=== PATIENT | male | born 1940 | race Caucasian/White ===

== ENCOUNTER 2021-03-25 09:28 | Outpatient (CLI) | payer MEDICARE, BC ==
[2021-03-25 10:43] LABS: Hemoglobin 12.7 g/dL (13.5-17.5); Mean Corpuscular HGB CONC 33.2 g/dL (32.0-36.0); Mean Corpuscular Hemoglobin 33.2 pg (27.0-33.0); Mean Corpuscular Volume 99.7 fl (81.2-95.1); Mean Platelet Volume 9.5 fl (7.4-10.4); Platelet Count 114 10x3/uL (150-450); RBC Distribution Width 13.5 % (11.5-14.5); Red Blood Cell (RBC) Count 3.83 10x6/uL (4.32-5.72); White Blood Cell (WBC) Count 4.6 10x3/uL (3.5-10.5)
[2021-03-25 11:08] LABS: Anion Gap 11 mmol/L (10-20); BUN (Urea Nitrogen) 20 mg/dL (8.4-25.7); Calc. Creatinine Clearance 0 mL/min (70-130); Calcium 9.5 mg/dL (7.8-10.44); Carbon Dioxide 26 mmol/L (23-31); Chloride 107 mmol/L (98-107); Glucose 236 mg/dL (83-110); Sodium 140 mmol/L (136-145)
[2021-03-25 19:39] LABS: SARS-CoV-2 PCR by NAA Not Detected (NotDetected)
== END 2021-03-25 09:29 | disposition home or self-care (01) ==
LOC: LABBT 09:28
PROVIDERS: ATTEND Otolaryngology Plastic Surgery within the Head & Neck
DX: Z01.818 Encounter for other preprocedural examination (principal); C44.310 Basal cell carcinoma of skin of unspecified parts of face; K13.0 Diseases of lips; D09.9 Carcinoma in situ, unspecified; Z20.822 Contact with and (suspected) exposure to COVID-19
CPT/HCPCS: 80048; 85027; U0003; U0005

== ENCOUNTER 2021-03-30 06:32 | Day surgery (SDC) | payer MEDICARE, BC ==
[2021-03-29 12:28] VITALS: BMI 24.0
[2021-03-30] MEDS ORDERED: Fentanyl 100 MCG/2 ML VIAL ONE (07:58)
[2021-03-30] MEDS ORDERED: Bacitracin Zinc Ointment 30 gm TUBE ONE (08:01)
[2021-03-30] MEDS ORDERED: Lidocaine 1% w/Epinephrine 1:100K 30 ML VIAL ONE (08:01)
[2021-03-30] MEDS ORDERED: PHENYLEPHRINE-NS 100 MCG/ML 10 ML SYRINGE ONE (08:23)
[2021-03-30] MEDS ORDERED: PROPOFOL 200 MG/20 ML VIAL ONE (08:23)
[2021-03-30] MEDS ORDERED: ePHEDrine 50 MG/ML VIAL ONE (08:23)
[2021-03-30] MEDS ORDERED: Lidocaine 1% PF 5 ML VIAL ONE (08:23)
[2021-03-30] MEDS ORDERED: Dexamethasone 20 MG/5 ML VIAL ONE (08:23)
[2021-03-30] MEDS ORDERED: Ondansetron PF 4 MG/2 ML Vial ONE (08:23)
[2021-03-30] MEDS ORDERED: Clindamycin/D5W 900 mg/50 ml Premix Bag ONE (08:36)
== END 2021-03-30 10:40 | disposition home or self-care (01) ==
LOC: SDC 06:32
PROVIDERS: ATTEND Otolaryngology Plastic Surgery within the Head & Neck
PROC: 0CB0XZX Excision of Upper Lip, External Approach, Diagnostic (ICD-10-PCS; principal; 2021-03-30)
DX: C00.0 Malignant neoplasm of external upper lip (principal); I10 Essential (primary) hypertension; E78.5 Hyperlipidemia, unspecified; I25.10 Atherosclerotic heart disease of native coronary artery without angina pectoris; N40.0 Benign prostatic hyperplasia without lower urinary tract symptoms; K21.9 Gastro-esophageal reflux disease without esophagitis; Z79.82 Long term (current) use of aspirin; Z79.899 Other long term (current) drug therapy; Z95.5 Presence of coronary angioplasty implant and graft
CPT/HCPCS: 88305; 88331; J1100; J2405; J2704; J3010; J3490